=== PATIENT | male | born 1955 | race Caucasian/White ===

== ENCOUNTER 2016-09-17 11:21 | Day surgery (SDC) | payer OTHER ==
[~2016-09-17] VITALS: Ht 172.7 cm; Wt 69.0 kg
[~2016-09-17 11:21] MED LIST: 0.9% Sodium Chloride 1,000 ML IV SCH; ACET250T4 PO; CIPR-198 PO; DXM4T PO; NIFE30TA79 PO; Sodium Chloride LOK Flush 10 mL Syringe IV PRN; fentaNYL-PF 50 mCg/mL 2 mL Inj IVPUSH PRN
[2016-09-17 12:04] VITALS: BP 127/79; PULSE 45; RESP 16; O2SAT 98
--- NOTE | 2016-09-17 13:27 | PCM.ENDCOL ---
Colonoscopy Date of Service: Sep 17, 2016 Physician Rod Mallory MD Pre Procedure Diagnosis: Screening Post Procedure Dx & Findings: Polyp hemorrhoids Procedure Colonoscopy PROCEDURE IN DETAIL: Prep adequate Withdrawal time 11 minutes After unremarkable rectal examination the Olympus video colonoscope was inserted patient's anal canal and was advanced to cecum. Landmarks were identified including the ileocecal valve and appendiceal orifice. Scope was withdrawn systematically. Visualized colonic mucosa showed healthy shiny mucosa with normal healthy-appearing vasculature. In the rectum, there were two 1 mm polyps. Narrowing banding used. Unclear whether these were hyperplastic. These 2 polyps are resected completely using cold forceps. In the rectum retroflexion was done which showed hemorrhoids. Anal canal was inspected carefully on the way out and hemorrhoids noted. Impression polyps x 2 s/p complete removal. Hemorrhoids Recommendation Repeat colonoscopy 5 years Presedation Assessment Risks and Benefits Informed consent was obtained from the patient after all risks and benefits including but not limited to drug reaction, infection, pain, bleeding, perforation, as well as alternatives were discussed. Patient monitoring Continuous pulse oximetry, cardiac monitoring, blood pressure monitoring, IV access, and oxygen at 2L per nasal cannula. Periprocedural Fentanyl: Fentanyl 50mcg Incrementally Midazolam: Midazolam 3mg Incrementally Complications There were no periprocedural complications identified. Post Procedure Plan Post Procedure Recommendations 1. Restrict activities today. 2. Resume normal activities in the morning. 3. Resume medications. 4. Patient informed of normal post procedure side effects as bloating, drowsiness, blood streaking in the stool. 5. average risk CRCS. If colon polyps come back as: -Hyperplastic- can repeat colonoscopy in 10 years -Tubular adenoma- repeat colonoscopy in 5 years -Tubulovillous/villous adenoma- repeat colonoscopy in 3 years -If any dysplasia- return to clinic as soon as possible 6. Please don't hesitate to call me with any questions. Rod Mallory MD Sep 17, 2016 13:27
[2016-09-17 13:31] VITALS: BP_SYST 12; BP_SYST 120; BP_DIAS 73; PULSE 54; RESP 14; O2SAT 99
[2016-09-17 13:39] VITALS: BP 120/70; PULSE 57; RESP 14; O2SAT 100
[2016-09-17 13:45] VITALS: BP 124/83; PULSE 49; RESP 15; O2SAT 100
--- NOTE | 2016-09-19 18:31 | PATH ---
SURGICAL PATHOLOGY Attending Physician:Rod Mallory M.D. CASE STATUS: Signed Out PATIENT NAME: NORMA ESPINOSA PID: [id number] : 1955 DATE COLLECTED:09/17/2016 00:00 SPECIMEN: Rectum, Biopsy CLINICAL HISTORY: SCREENING, COLON POLYPS 1). RECTAL POLYPS FINAL DIAGNOSIS: Rectum, Polyp, Biopsy: Portion of hyperplastic polyp x1. Superficial portion of colorectal mucosa x1 with no significant histomorphologic abnormality. ICD10: K62.1 GROSS DESCRIPTION: The specimen is received in one formalin filled container labeled with the patient's name, sublabeled "rectal polyps" and consists of 2 portions of tissue which aggregate to 0.3 x 0.3 x 0.2 CM. The specimen is entirely submitted in one cassette. 09/18/2016 [facility] ICD-9 CODES: CPT CODES: 1: 05890 Electronically Signed Out Carol Arias MD [facility] [address], [place] [address] Technical component performed at [facility], [address] [place] [address] [address], [place], [address]
== END 2016-09-17 23:59 | disposition home or self-care (01) ==
LOC: END 11:21
PROVIDERS: ATTEND Internal Medicine
DX: Z12.11 Encounter for screening for malignant neoplasm of colon (principal); K62.1 Rectal polyp; K64.8 Other hemorrhoids
CPT/HCPCS: 45380; J2250; J3010; J7030